=== PATIENT | male | born 1935 | race Caucasian/White ===

== ENCOUNTER → 2016-12-21 | Outpatient (CLI) | payer MEDICARE | LOC: MAMMO 14:05 | DX: N63 Unspecified lump in breast (principal); N64.4 Mastodynia ==

== ENCOUNTER 2019-04-21 15:15 | Emergency (ER) | payer OTHER ==
[2019-04-21] MEDS ORDERED: DIGOXIN125 MCG PO (15:25)
[2019-04-21] MEDS ORDERED: POTASSIUM CHLOR8 ME3 PO (15:25)
[2019-04-21] MEDS ORDERED: GLUCOPHAGE PO (15:25)
[2019-04-21] MEDS ORDERED: NATURE'S BLEND400 IU PO (15:25)
[2019-04-21] MEDS ORDERED: RANITIDINE HCL150 M1 PO (15:25)
[2019-04-21] MEDS ORDERED: NITROGLYCERIN0.3 M1 SL (15:25)
[2019-04-21] MEDS ORDERED: FUROSEMIDE40 MG (15:25)
[2019-04-21] MEDS ORDERED: LOW DOSE ASPIRI81 M1 PO (15:26)
[2019-04-21] MEDS ORDERED: CARVEDILOL12.5 MG PO (15:26)
[2019-04-21] MEDS ORDERED: GOOD NEIGHBOR P20 M1 PO (15:26)
[2019-04-21] MEDS ORDERED: ATORVASTATIN CA80 MG PO (15:26)
[2019-04-21] MEDS ORDERED: LOSARTAN POTASS50 M1 PO (15:26)
[2019-04-21] MEDS ORDERED: ISOSORBIDE MONO60 M2 PO (15:26)
[2019-04-21] MEDS ORDERED: BACTRIM DS TAB1 EACH PO (15:30)
[2019-04-21 15:39] VITALS: BP 118/69
== END 2019-04-21 15:40 | disposition home or self-care (01) ==
LOC: ED 15:15
DX: L03.113 Cellulitis of right upper limb (principal); I11.0 Hypertensive heart disease with heart failure; I50.9 Heart failure, unspecified; I48.91 Unspecified atrial fibrillation; E11.9 Type 2 diabetes mellitus without complications; Z79.82 Long term (current) use of aspirin; Z79.84 Long term (current) use of oral hypoglycemic drugs; Z88.0 Allergy status to penicillin; W23.0XXD Caught, crushed, jammed, or pinched between moving objects, subsequent encounter

== ENCOUNTER 2020-04-12 16:03 | Inpatient (IN) | payer OTHER ==
[~2020-04-12] VITALS: Ht 180.3 cm; Wt 94.7 kg
[~2020-04-12 16:03] MED LIST: ATORVASTATIN CA80 MG PO; BACTRIM DS TAB1 EACH PO; CARVEDILOL12.5 MG PO; DIGOXIN125 MCG PO; FUROSEMIDE40 MG; GLUCOPHAGE PO; GOOD NEIGHBOR P20 M1 PO; ISOSORBIDE MONO60 M2 PO; LOSARTAN POTASS50 M1 PO; LOW DOSE ASPIRI81 M1 PO; NATURE'S BLEND400 IU PO; NITROGLYCERIN0.3 M1 SL; POTASSIUM CHLOR8 ME3 PO; RANITIDINE HCL150 M1 PO
[2020-04-12 16:57] LABS: HEMATOCRIT 44.1 % (42.0-52.0); HEMOGLOBIN 13.5 g/dL (13.5-18.0); MEAN CELL VOLUME 86 fl (78-100); MEAN CORPUSCULAR HEMOGLOBIN 26 pg (27-31); MEAN CORPUSCULAR HGB CONC 31 g/dL (33-37); PLATELET COUNT 291 K/mm3 (130-400); RED BLOOD COUNT 5.13 M/mm3 (4.20-5.60); RED CELL DISTRIBUTION WIDTH 15.9 % (11.5-14.5); WHITE BLOOD COUNT 17.1 K/mm3 (4.8-10.8)
[2020-04-12 17:21] LABS: POTASSIUM 5.2 mmol/L (3.5-5.1); SODIUM 139 mmol/L (136-145)
[2020-04-12 17:22] LABS: CALCIUM 8.8 mg/dL (8.3-10.5)
[2020-04-12 17:23] LABS: GLUCOSE 270 mg/dL (75-110); TOTAL PROTEIN 7.5 g/dL (6.2-8.1)
[2020-04-12 17:24] LABS: CARBON DIOXIDE 27 mmol/L (23-31)
[2020-04-12 17:25] LABS: TOTAL BILIRUBIN 1.4 mg/dL (0.2-1.2)
[2020-04-12 17:26] LABS: PROTHROMBIN TIME 10.9 SECONDS (9.0-12.0)
[2020-04-12 17:28] LABS: AST-SGOT 137 U/L (5-34)
[2020-04-12 17:29] LABS: ALT/SGPT 76 U/L (0-55)
[2020-04-12 17:35] LABS: TROPONIN-I < 0.03 ng/mL (<0.030)
[2020-04-12 17:59] LABS: BAND 1 % (0-10); LYMPHOCYTE 11 % (20-51); MONOCYTE 10 % (3-10); NEUTROPHILS 77 % (42-75)
[2020-04-12 21:16] VITALS: BP 117/59
[2020-04-12 21:18] VITALS: BP 117/59
[2020-04-12 22:04] LABS: URINE APPEARANCE HAZY; URINE BILIRUBIN NEGATIVE (NEGATIVE); URINE BLOOD NEGATIVE (NEGATIVE); URINE COLOR YELLOW; URINE GLUCOSE NEGATIVE (NEGATIVE); URINE KETONE NEGATIVE (NEGATIVE); URINE LEUKOCYTE ESTERASE NEGATIVE (NEGATIVE); URINE NITRATE NEGATIVE (NEGATIVE); URINE PROTEIN(semi-quant) 1+ mg/dL (NEGATIVE); URINE UROBILINOGEN NORMAL (NORMAL); URINE WBC 0-1 /hpf (0-3)
[2020-04-12 22:05] LABS: URINE MUCUS PRESENT (NOT PRESENT)
[2020-04-13 02:18] VITALS: BP 139/98
[2020-04-13 05:31] VITALS: BP 132/73
[2020-04-13 06:38] LABS: EOS # 0.2 (0.04-0.40); EOS % 1.7 % (0.0-4.0); HEMATOCRIT 39.5 % (42.0-52.0); HEMOGLOBIN 12.1 g/dL (13.5-18.0); LYMPH# 1.3 (1.50-4.00); MEAN CELL VOLUME 85 fl (78-100); MEAN CORPUSCULAR HEMOGLOBIN 26 pg (27-31); MEAN CORPUSCULAR HGB CONC 31 g/dL (33-37); MEAN PLATELET VOLUME 9.8 fl (7.4-10.4); MONO # 1.1 (0.20-0.80); NEU # 7.3 (1.40-6.50); PLATELET COUNT 203 K/mm3 (130-400); RED BLOOD COUNT 4.64 M/mm3 (4.20-5.60); WHITE BLOOD COUNT 9.9 K/mm3 (4.8-10.8)
[2020-04-13 06:43] LABS: ALBUMIN 3.5 g/dL (3.4-4.8); POTASSIUM 4.3 mmol/L (3.5-5.1)
[2020-04-13 06:44] LABS: CALCIUM 8.5 mg/dL (8.3-10.5)
[2020-04-13 06:45] LABS: TOTAL PROTEIN 6.7 g/dL (6.2-8.1)
[2020-04-13 06:58] LABS: TROPONIN-I 0.17 ng/mL (<0.030)
[2020-04-13 07:34] LABS: ERYTHROCYTE SEDIMENTATION RATE 32 mm/hr (0-20)
== END 2020-04-13 13:17 | disposition expired ==
LOC: ED 16:03 → MED/SURG 20:21
PROVIDERS: Internal Medicine; ADMIT Physician Assistant
PROC: 5A09357 Assistance with Respiratory Ventilation, Less than 24 Consecutive Hours, Continuous Positive Airway Pressure (ICD-10-PCS; principal; 2020-04-12)
DX: I21.3 ST elevation (STEMI) myocardial infarction of unspecified site (principal); J18.9 Pneumonia, unspecified organism; I50.9 Heart failure, unspecified; I48.91 Unspecified atrial fibrillation; I46.9 Cardiac arrest, cause unspecified; R06.82 Tachypnea, not elsewhere classified; Z20.822 Contact with and (suspected) exposure to COVID-19; Z66 Do not resuscitate; Z88.0 Allergy status to penicillin
CPT/HCPCS: A4618; J1940; J2060; J2270